=== PATIENT | male | born 1950 | race Caucasian/White ===

== ENCOUNTER 2018-09-04 17:53 | Emergency (ER) | payer MEDICARE, BC ==
[2018-09-04] MEDS ORDERED: LIDOCAINE 2% URO-JET 5 ML SYRINGE UR STA (20:19)
--- NOTE | 2018-09-04 20:26 | ED Physician Documentation ---
History of Present Illness - Stated complaint Stated Complaint: CATHETER ISSUES - Chief complaint Chief Complaint: General - History obtained from History obtained from: Patient, Family - History of Present Illness Timing: Today Pain level max: 0 Pain level now: 0 Improved by: nothing Worsened by: nothing - Additonal information Additional information: states cramer is not drianing today. Placed yesterday for urinary retention Review of Systems Constitutional: denies: Fever, Chills Respiratory: denies: Cough GI: denies: Vomiting, Diarrhea Skin: denies: Rash Musculoskeletal: denies: Neck pain Neurologic: denies: Headache PD PAST MEDICAL HISTORY - Past Medical History Past Medical History: Yes - Present Medications Home Medications: Ambulatory Orders Medication Instructions Recorded Confirmed Ciprofloxacin HCl [Cipro] 500 mg PO 09/04/18 Tamsulosin HCl [Flomax] 2 tab ORAL DAILY 09/04/18 09/04/18 - Allergies Allergies/Adverse Reactions: Allergies Allergy/AdvReac Type Severity Reaction Status Date / Time No Known Drug Allergies Allergy Verified 09/04/18 18:07 - Living Situation Living Situation: reports: With family Living Arrangement: reports: At home - Social History Does the pt have substance abuse?: No - Family History Family history: reports: Non contributory PD ED PE NORMAL - Vitals Vital signs reviewed: Yes - General General: Alert and oriented X 3, No acute distress - HEENT HEENT: Moist mucous membranes - Neck Neck: Supple, no meningeal sign - Cardiac Cardiac: RRR - Respiratory Respiratory: No respiratory distress, Clear bilaterally - Abdomen Abdomen: Soft, Non tender - Male Male : Other (cramer in place) - Derm Derm: Warm and dry - Neuro Neuro: Alert and oriented X 3 - Psych Psych: Normal mood, Normal affect Results - Vitals Vitals: Vital Signs - 24 hr 09/04/18 09/04/18 18:02 21:31 Temperature 36.3 C L Heart Rate 98 125 H Respiratory 16 20 Rate Blood Pressure 126/94 H 125/103 H O2 Saturation 99 100 Oxygen O2 Source Room air PD MEDICAL DECISION MAKING - ED course Complexity details: reviewed results, re-evaluated patient, considered differential, d/w patient ED course: Patient elected Cramer irrigation rather than replacement of the Cramer catheter. The catheter was irrigated and now flowing freely. He will follow-up with his urologist in the morning. Patient counseled regarding signs and symptoms for which I believe and urgent re-evaluation would be necessary. Patient with good understanding of and agreement to plan and is comfortable going home at this time This document was made in part using voice recognition software. While efforts are made to proofread this document, sound alike and grammatical errors may occur. Initially discussed replacement of the catheter with a larger catheter to prevent clotting from the hematuria Departure - Departure Disposition: 01 Home, Self Care Clinical Impression: Obstructed Cramer catheter Qualifiers: Encounter type: initial encounter Qualified Code(s): T83.091A - Other mechanical complication of indwelling urethral catheter, initial encounter Condition: Good Instructions: ED Catheter Care Cramer Follow-Up: Christine Patel MD [Primary Care Provider] - Within 1 week Comments: Return if you worsen. Follow up with your urologist as scheduled. Discharge Date/Time: 09/04/18 21:36
[2018-09-04 21:32] VITALS: BP 125/103
== END 2018-09-04 21:36 | disposition home or self-care (01) ==
LOC: ED 17:53
DX: T83.091A Other mechanical complication of indwelling urethral catheter, initial encounter (principal); R31.9 Hematuria, unspecified
CPT/HCPCS: 99283

== ENCOUNTER 2018-09-24 21:37 | Inpatient (IN) | payer MEDICARE, BC ==
[2018-09-24] MEDS ORDERED: LIDOCAINE 2% URO-JET 5 ML SYRINGE UR STA (21:48)
--- NOTE | 2018-09-24 21:51 | ED Physician Documentation ---
History of Present Illness - Stated complaint Stated Complaint: MALE - Chief complaint Chief Complaint: General - Additonal information Additional information: hx from pt and 68 male being txed for prostatitis by [facility] had an indwelling cramer for retention cramer was removed today he was able to urinate in the office but now not able to urinate for several hr very uncomfortable 2/2 full bladder no fever NV flank pain Review of Systems Constitutional: denies: Fever GI: denies: Nausea, Vomiting : reports: Unable to Void Musculoskeletal: denies: Back pain PD PAST MEDICAL HISTORY - Present Medications Home Medications: Ambulatory Orders Medication Instructions Recorded Confirmed Ciprofloxacin HCl [Cipro] 500 mg PO 09/04/18 Tamsulosin HCl [Flomax] 2 tab ORAL DAILY 09/04/18 09/04/18 - Allergies Allergies/Adverse Reactions: Allergies Allergy/AdvReac Type Severity Reaction Status Date / Time No Known Drug Allergies Allergy Verified 09/24/18 21:46 - Social History Does the pt smoke?: No Smoking Status: Never smoker Does the pt have substance abuse?: No PD ED PE NORMAL - Vitals Vital signs reviewed: Yes - Cardiac Cardiac: RRR - Respiratory Respiratory: No respiratory distress - Abdomen Abdomen: Soft, Other (palp bladder) - Male Male : Other (no blood at meatus, small clear urine leaking, no lesions) - Rectal Rectal: Other (enlarged prostate, no mass, no hemorrhoid or fissure, no stool in vault but gel/mucous is occult blood neg QC passed) - Derm Derm: Normal color - Neuro Neuro: Alert and oriented X 3 Results - Vitals Vitals: Vital Signs - 24 hr 09/24/18 09/24/18 21:44 22:49 Temperature 36.9 C 36.9 C Heart Rate 133 H 118 H Respiratory 18 18 Rate Blood Pressure 142/84 H 105/66 O2 Saturation 100 96 Oxygen O2 Source Room air - Labs Labs: Laboratory Tests 09/24/18 09/25/18 09/25/18 22:04 00:00 00:00 WBC 20.7 H RBC 3.03 L Hgb 7.7 L Hct 23.4 L MCV 77.0 L MCH 25.3 L MCHC 32.9 RDW 15.2 H Plt Count 604 H MPV 7.8 Neut # (Auto) 17.9 H Lymph # (Auto) 0.9 L Randolph # (Auto) 1.6 H Eos # (Auto) 0.2 Baso # (Auto) 0.1 Absolute Nucleated RBC 0.01 Nucleated RBC % 0.0 Sodium 126 L Potassium 4.2 Chloride 93 L Carbon Dioxide 23 Anion Gap 10.0 BUN 20 Creatinine 1.8 H Estimated GFR (MDRD) 38 L Glucose 134 H Lactic Acid Calcium 8.3 L Urine Color YELLOW Urine Clarity HAZY Urine pH 6.0 Ur Specific Echo <=1.005 Urine Protein 30 H Urine Glucose (UA) NEGATIVE Urine Ketones NEGATIVE Urine Occult Blood LARGE H Urine Nitrite NEGATIVE Urine Bilirubin NEGATIVE Urine Urobilinogen 0.2 (NORMAL) Ur Leukocyte Esterase MODERATE H Urine RBC 11-25 H Urine WBC >25 H Ur Squamous Epith Cells NONE SEEN Amorphous Sediment Few Urine Bacteria Few Ur Microscopic Review INDICATED Urine Culture Comments INDICATED 09/25/18 00:00 WBC RBC Hgb Hct MCV MCH MCHC RDW Plt Count MPV Neut # (Auto) Lymph # (Auto) Randolph # (Auto) Eos # (Auto) Baso # (Auto) Absolute Nucleated RBC Nucleated RBC % Sodium Potassium Chloride Carbon Dioxide Anion Gap BUN Creatinine Estimated GFR (MDRD) Glucose Lactic Acid < 0.3 L Calcium Urine Color Urine Clarity Urine pH Ur Specific Echo Urine Protein Urine Glucose (UA) Urine Ketones Urine Occult Blood Urine Nitrite Urine Bilirubin Urine Urobilinogen Ur Leukocyte Esterase Urine RBC Urine WBC Ur Squamous Epith Cells Amorphous Sediment Urine Bacteria Ur Microscopic Review Urine Culture Comments PD MEDICAL DECISION MAKING - ED course ED course: pt arrived tachy presumed 2/2 bladder discomfort but after cramer placed and discomfort resolved he still had tachycardia - improved, now 110, but still abnormal and then developed some rigors so got blood work, lactate, cultures, and gave 1 L NS, a dose of rocephin labs very abd - marked renal insuff, profound anemia, sig leukocytosis despite 6 weeks of cipro he denies bloody black BM and rectal exam no stool but occult blood neg pt did have labs with PMD a week ago - clinic in [facility] - but apparently not run through [facility] lab as no old results available - pt thinks maybe PMD and or urologist mentioned anemia and renal insuff but details not known as far as he knows no sig hx of either but given persistent tachycardia, WBC 20, Hgb 7.7, creat 1.8 and persistent tachycardia will admit called hospitalist who promptly came to the ER to admit Departure - Departure Disposition: 66 [facility] DC/Xfer Clinical Impression: Urinary retention, Renal insufficiency, Tachycardia UTI (urinary tract infection) Qualifiers: Urinary tract infection type: acute cystitis Hematuria presence: with hematuria Qualified Code(s): N30.01 - Acute cystitis with hematuria Anemia Qualifiers: Anemia type: unspecified type Qualified Code(s): D64.9 - Anemia, unspecified Leukocytosis Qualifiers: Leukocytosis type: unspecified Qualified Code(s): D72.829 - Elevated white blood cell count, unspecified Condition: Good Instructions: ED Catheter Care Cramer Follow-Up: Christine Patel MD [Primary Care Provider] - Comments: The urine sample showed blood (likely from catheter placement) and infection. For now continue the cipro A urine culture will be run to identify the bacteria that are causing the infection and what antibiotics will work for that strain of bacteria. The ER staff will keron you if a new antibiotic is needed Return if worse (fever kidney pain vomiting weakness)
[2018-09-24 22:20] LABS: BILIRUBIN,URINE NEGATIVE (NEGATIVE); GLUCOSE, URINE (UA) NEGATIVE (NEGATIVE); KETONES,URINE (UA) NEGATIVE (NEGATIVE); LEUKOCYTE ESTERASE, URINE MODERATE (NEGATIVE); NITRITE,URINE NEGATIVE (NEGATIVE); OCCULT BLOOD,URINE LARGE (NEGATIVE); PROTEIN,URINE 30 mg/dL (NEGATIVE); UROBILINOGEN,URINE 0.2 (NORMAL) E.U./dL (NORMAL)
[2018-09-24 22:22] LABS: CLARITY,URINE HAZY (CLEAR)
[2018-09-24 22:27] LABS: AMORPHOUS SEDIMENT,UR Few /LPF; BACTERIA,URINE Few /HPF (None Seen); SQUAMOUS EPITHELIAL CELL,UR NONE SEEN (<= Few)
[2018-09-24] MEDS ORDERED: cefTRIAXone 1 GM in SODIUM CHLORIDE 0.9% MINIBAG 100 ML IV STA (23:35)
[2018-09-24] MEDS ORDERED: SODIUM CHLORIDE 0.9% 1,000 ML IV ONE (23:35)
[2018-09-25 00:22] LABS: BASOPHILS # (AUTO) 0.1 10^3/uL (0.0-0.1); BASOPHILS % (AUTO) 0.4 %; EOSINOPHILS # (AUTO) 0.2 10^3/uL (0.0-0.7); EOSINOPHILS % (AUTO) 1.1 %; HGB - HEMOGLOBIN 7.7 g/dL (14.0-18.0); LYMPHOCYTES # (AUTO) 0.9 10^3/uL (1.5-3.5); LYMPHOCYTES % (AUTO) 4.2 %; MEAN CORPUSCULAR HEMOGLOBIN 25.3 pg (27.0-31.0); MEAN CORPUSCULAR HGB CONC 32.9 g/dL (32.0-36.0); MEAN PLATELET VOLUME 7.8 fL (7.4-11.4); MONOCYTES # (AUTO) 1.6 10^3/uL (0.0-1.0); MONOCYTES % (AUTO) 7.7 %; NEUTROPHILS # (AUTO) 17.9 10^3/uL (1.5-6.6); NEUTROPHILS % (AUTO) 86.6 %; PLT - PLATELET COUNT 604 10^3/uL (130-450); RED BLOOD COUNT 3.03 10^6/uL (4.70-6.10); RED CELL DISTRIBUTION WIDTH 15.2 % (12.0-15.0); WHITE BLOOD COUNT 20.7 x10^3/uL (4.8-10.8)
[2018-09-25 00:28] LABS: CALCIUM 8.3 mg/dL (8.5-10.3); CREATININE 1.8 mg/dL (0.6-1.2)
[2018-09-25] MEDS ORDERED: MORPHINE 2 MG/ML CARPUJECT IVP PRN (01:24)
[2018-09-25] MEDS ORDERED: ACETAMINOPHEN 325 MG TABLET PO PRN (01:24)
[2018-09-25] MEDS ORDERED: ZOLPIDEM 5 MG TABLET PO PRN (01:24)
--- NOTE | 2018-09-25 01:41 | HISTORY & PHYSICAL EXAMINATION ---
Meds/Allgy - Home Medications Home Medications: Ambulatory Orders Medication Instructions Recorded Confirmed Ciprofloxacin HCl [Cipro] 500 mg PO 09/04/18 Tamsulosin HCl [Flomax] 2 tab ORAL DAILY 09/04/18 09/04/18 - Allergies Allergies/Adverse Reactions: Allergies Allergy/AdvReac Type Severity Reaction Status Date / Time No Known Drug Allergies Allergy Verified 09/24/18 21:46 Exam - Vital Signs Vital Signs: Vital Signs x48h Temp Pulse Resp BP Pulse Ox 09/24/18 22:49 36.9 C 118 H 18 105/66 96 09/24/18 21:44 36.9 C 133 H 18 142/84 H 100 Conclusion/Plan - Problem List (1) Complicated UTI (urinary tract infection) Conclusion/Plan: Given that the patient has been diagnosed with prostatitis in the outpatient, and has failed antibiotic regimen first with doxycycline then with Cipro, now having tachycardia and SIRS response, diagnosis at this point is at least a complicated UTI possibly complication of prostatitis. His urine does strongly suggest of UTI and will be sent for culture. In the meantime, because of the guidelines for complicated UTI in the setting of urinary obstruction will use vancomycin and meropenem for antibiotic regimen pending cultures or significant clinical improvement. Carl catheter placed in the emergency room will remain in place and likely he will need to be discharged with this in place so that he can follow-up outpatient with urology. (2) SIRS (systemic inflammatory response syndrome) Conclusion/Plan: Most likely this is secondary to UTI. His lung exam is clear to me however the patient's notes that he has been coughing for about 1 month it is unlikely that he has an acute infectious bacterial pneumonia with a normal lung exam and normal oxygen sat durations, but given the other symptoms of infection I will go ahead and order a chest x-ray. (3) Microcytic anemia Conclusion/Plan: His labs do demonstrate a microcytic anemia, which is surprising given that he drank about 3 glasses of wine per day up until 1 month ago so I would have expected macrocytic anemia. It is unclear as to the etiology of this as his Hemoccult was negative and he does not have any history of signs or symptoms of bleeding. I will check a anemia panel in the morning and repeat labs but with further workup pending. (4) Thrombocythemia Conclusion/Plan: Platelets over 600,000, possibly due to hemoconcentration but this does not fit to the hemoglobin and hematocrits. We will repeat labs in the morning and he may need a possible outpatient workup for this. (5) Urinary retention Conclusion/Plan: Patient is unsure of the diagnosis as he has only recently been referred to urology but it sounds like he probably has BPH. I will continue his home dose of Flomax and his indwelling Carl catheter will remain in place. - Lab Results Lab results reviewed: Yes Fish Bones: 09/25/18 00:00 09/25/18 00:00 Core Measures - Anticipated LOS I expect patient to be DC'd or transferred within 96 hours.: Yes - DVT/VTE - Prophylaxis VTE/DVT Device ordered at admit?: Yes
[2018-09-25 01:44] LABS: MEAN RETIC VALUE 98.7; RED BLOOD COUNT 3.08 10^6/uL (4.70-6.10)
[2018-09-25] MEDS ORDERED: VANCOMYCIN PER PHARMACY 100 GM in SODIUM CHLORIDE 0.9% 250 ML IV SCH (02:00)
[2018-09-25 02:07] LABS: % IRON SATURATION 3 % (20-50); IRON 7 ug/dL (45-182); TOTAL IRON BINDING CAPACITY 224 ug/dL (250-450); TRANSFERRIN 160 mg/dL (180-329)
[2018-09-25] MEDS: SODIUM CHLORIDE 0.9% 1,000 ML IV SCH ×2 (02:40→14:09)
[2018-09-25] MEDS: VANCOMYCIN INJ 1 GM in SODIUM CHLORIDE 0.9% 250 ML IV SCH (04:17)
[2018-09-25] MEDS ORDERED: MEROPENEM 1 GM in SODIUM CHLORIDE 0.9% MINIBAG 100 ML IV SCH (06:00)
[2018-09-25] MEDS: MEROPENEM 1 GM in SODIUM CHLORIDE 0.9% MINIBAG 100 ML IV SCH ×2 (06:23→18:11)
[2018-09-25] MEDS: PANTOPRAZOLE 40 MG TABLET PO SCH (06:23)
[2018-09-25] MEDS ORDERED: TAMSULOSIN 0.4 MG CAPSULE PO SCH (09:00)
[2018-09-25] MEDS: POLYETHYLENE GLYCOL 3350 17 GM PACKET PO SCH (10:04)
[2018-09-25] MEDS: SODIUM CHLORIDE FLUSH 0.9% 10 ML SYRINGE IVP SCH ×2 (10:07→18:11)
--- NOTE | 2018-09-25 13:32 | XRAY Report ---
Reason: Cough x 1 month Procedure Date: 09/25/2018 Accession Number: [id number] / [id number] Procedure: XR - Chest 2 View X-Ray CPT Code: 61438 FULL RESULT: EXAM: CHEST RADIOGRAPHY EXAM DATE: 09/25/2018 10:27 AM. CLINICAL HISTORY: Cough x 1 month. COMPARISON: None. TECHNIQUE: 2 views. FINDINGS: Lungs/Pleura: No focal airspace consolidation evident. There is mild horizontal linear subsegmental atelectasis or scarring at the anterior aspect of the right lung base. No pleural effusion. No pneumothorax. Normal volumes. Mediastinum: Heart and mediastinal contours are unremarkable. Other: No acute osseous abnormality. There are mild degenerative disk changes of the thoracic spine. IMPRESSION: No acute cardiopulmonary abnormality. RADIA
[2018-09-25] MEDS ORDERED: SODIUM CHLORIDE 0.9% 1,000 ML IV ONE (14:09)
[2018-09-25] MEDS: TAMSULOSIN 0.4 MG CAPSULE PO SCH (18:11)
[2018-09-25] MEDS: SODIUM CHLORIDE FLUSH 0.9% 10 ML SYRINGE IVP PRN (19:00)
[2018-09-26] MEDS: SODIUM CHLORIDE FLUSH 0.9% 10 ML SYRINGE IVP SCH ×3 (00:23→17:47)
[2018-09-26] MEDS: HYDROcod/ACETAM 5/325 MG TABLET PO PRN ×2 (01:49→22:40)
[2018-09-26] MEDS: SODIUM CHLORIDE FLUSH 0.9% 10 ML SYRINGE IVP PRN (04:02)
[2018-09-26] MEDS: VANCOMYCIN INJ 1 GM in SODIUM CHLORIDE 0.9% 250 ML IV SCH (04:02)
[2018-09-26 05:39] LABS: HGB - HEMOGLOBIN 7.2 g/dL (14.0-18.0); MEAN CORPUSCULAR HEMOGLOBIN 25.5 pg (27.0-31.0); MEAN CORPUSCULAR HGB CONC 32.7 g/dL (32.0-36.0); MEAN CORPUSCULAR VOLUME 77.9 fL (80.0-94.0); MEAN PLATELET VOLUME 7.5 fL (7.4-11.4); RED BLOOD COUNT 2.83 10^6/uL (4.70-6.10); RED CELL DISTRIBUTION WIDTH 15.1 % (12.0-15.0); WHITE BLOOD COUNT 13.4 x10^3/uL (4.8-10.8)
[2018-09-26 05:46] LABS: CALCIUM 8.5 mg/dL (8.5-10.3); CREATININE 1.5 mg/dL (0.6-1.2)
[2018-09-26] MEDS: MEROPENEM 1 GM in SODIUM CHLORIDE 0.9% MINIBAG 100 ML IV SCH ×2 (06:20→19:41)
[2018-09-26] MEDS: PANTOPRAZOLE 40 MG TABLET PO SCH (06:22)
[2018-09-26] MEDS: TAMSULOSIN 0.4 MG CAPSULE PO SCH ×2 (08:51→17:47)
[2018-09-26] MEDS: FERROUS SULFATE 325 MG TABLET PO SCH ×2 (08:51→17:47)
[2018-09-26] MEDS: POLYETHYLENE GLYCOL 3350 17 GM PACKET PO SCH (08:52)
--- NOTE | 2018-09-26 12:06 | PROVIDER PROGRESS NOTE ---
Subjective - Prog Note Date Prog Note Date: 09/26/18 Prog Note Time: 12:02 - Subjective Pt reports feeling: Improved Subjective: Tobias complains of intermittent urinary urgency with bladder spasms today despite a cramer reposition. He denies chest pain, chest palpitations, a rash, or a productive cough. Current Medications - Current Medications Current Medications: Active Medications: Acetaminophen (Tylenol) 650 mg PO Q4HR PRN Hydrocodone Bitart/Acetaminophen ([place] 5/325) 1 tab PO Q4HR PRN Belladonna Alkaloids/Opium (B & O Supp) 1 supp GA Q6HR PRN Ferrous Sulfate (Feosol) 325 mg PO BIDWM CRYSTAL Meropenem 1 gm/ Sodium (Chloride) 100 mls @ 200 mls/hr IV Q12H CRYSTAL Vancomycin HCl 1 gm/ Sodium (Chloride) 250 mls @ 167 mls/hr IV Q24H CRYSTAL Sodium Chloride (Normal Saline 0.9%) 1,000 mls @ 0 mls/hr IV .Q0M CRYSTAL Morphine Sulfate (Morphine (Carpuject)) 2 mg IVP Q2HR PRN Pantoprazole Sodium (Protonix) 40 mg PO QDAC CRYSTAL Polyethylene Glycol (Miralax) 17 gm PO DAILY CRYSTAL Sodium Chloride (Normal Saline Flush 0.9%) 10 ml IVP PRN PRN Sodium Chloride (Normal Saline Flush 0.9%) 10 ml IVP 0100,0900,1700 CRYSTAL Tamsulosin HCl (Flomax) 0.4 mg PO BIDWM CRYSTAL Zolpidem Tartrate (Ambien) 5 mg PO QPM PRN HOME meds: Tamsulosin HCl [Flomax] 0.8 mg ORAL DAILY 09/04/18 Ascorbic Acid [Vitamin C] 1,000 mg PO DAILY 09/25/18 Objective - Vital Signs/Intake & Output Reviewed Vital Signs: Yes Vital Signs: Vital Signs x48h Temp Pulse Resp BP Pulse Ox 09/26/18 07:42 36.6 C 87 16 114/69 99 Intake & Output: Intake & Output 09/23/18 09/24/18 09/25/18 09/26/18 23:59 23:59 23:59 23:59 Intake Total 5547 590 Output Total 3350 900 Balance 2197 -310 - Objective General Appearance: positive: Alert, Mild distress Eyes Bilateral: positive: PERRL Eyes: OU Conjunctivae pale ENT: positive: Pharynx nml, No signs of dehydration Neck: positive: Thyroid nml, No JVD, Trachea midline Respiratory: positive: Chest non-tender, No respiratory distress, Other (crackles in bilateral bases.) Cardiovascular: positive: Regular rate & rhythm, No gallop, Tachycardia, Systolic murmur, Decreased pulse(s) Peripheral Pulses: 1+ Radial (R), 1+ Radial (L) Abdomen: positive: Non-tender, Nml bowel sounds Back: positive: Nml inspection Skin: positive: Color nml, No rash, Warm, Dry Extremities: positive: Non-tender, Full ROM, Nml appearance Neurologic/Psychiatric: positive: Oriented x3, CN's nml (2-12), Motor nml, Sensation nml, Mood/affect nml Reflexes: Bicep (R): 3+, Bicep (L): 3+ - Lab Results Fish Bones: 09/26/18 05:14 09/26/18 05:14 Other Labs: Lab Results x24hrs 09/26/18 09/26/18 Range/Units 05:14 05:14 WBC 13.4 H (4.8-10.8) x10^3/uL RBC 2.83 L (4.70-6.10) 10^6/uL Hgb 7.2 L (14.0-18.0) g/dL Hct 22.1 L (42.0-52.0) % MCV 77.9 L (80.0-94.0) fL MCH 25.5 L (27.0-31.0) pg MCHC 32.7 (32.0-36.0) g/dL RDW 15.1 H (12.0-15.0) % Plt Count 549 H (130-450) 10^3/uL MPV 7.5 (7.4-11.4) fL Sodium 137 (135-145) mmol/L Potassium 4.1 (3.5-5.0) mmol/L Chloride 105 (101-111) mmol/L Carbon Dioxide 23 (21-32) mmol/L Anion Gap 9.0 (6-13) BUN 17 (6-20) mg/dL Creatinine 1.5 H (0.6-1.2) mg/dL Estimated GFR (MDRD) 47 L (>89) Glucose 111 H (70-100) mg/dL Calcium 8.5 (8.5-10.3) mg/dL ABX Reporting Has patient been on IV antibiotics over the past 48 hours?: Yes Sepsis Event Note (H) - Evaluation Current Stage of Sepsis: Ruled out Assessment/Plan - Problem List (1) Complicated UTI (urinary tract infection) Impression: The patient had been on oral antibiotics outpatient and after arriving to the ED he was found to have a urine sample that showed an ongoing acute UTI. He denies new back or flank pain and on exam today is noted to have faint signs of pink tinged urine. He continues on treatment of meropenum and vanco IV and is generally improved. Preliminary cultures results show no aerobic pathogens with the final still pending. Plan: Continue IV treatment and ensure good flow from cramer. Continue indwelling cramer. (2) Microcytic anemia Impression: The patient had an admission H/H of 7.7/23.4 and today this has worsened at 7.2/22.1. Additionally, he is symptomatic while ambulating in which he became breathless, experienced leg weakness, and has been tachycardic with heart rates sustained in the 130-160's. On exam the patient is pale, denies chest pain, but continues to have bladder issues. Iron studies show an iron deficiency and he continues on BID oral iron supplement. He has no yazidism restrictions and agreeable to one unit of PRBCs. A possible cause of his anemia is chronic antibiotic treatment. Plan: Transfuse 1 unit of PRBCs, daily labs, monitor for bleeding. (3) BPH (benign prostatic hyperplasia) Impression: The patient states that he has been referred to Urology who attempted a voiding trial that failed and consequently led to him coming to the ED for an inability to urinate. Plan: Continue Flomax BID, continue indwelling cramer. (4) Urinary retention Impression: The patient continues to complain today of sharp cramping pains in his bladder and states that he has a full feeling at times. Per chart review, he had a similar episode overnight in which the cramer was adjusted to accommodate this discomfort. I have ordered a bladder US that is pending. He has tried a Opium/belladona suppository with good relief today, so this is ordered PRN. Plan: Continue B & O suppository to relax pelvic muscles and to ease bladder drainage, monitor urine out put, continue indwelling cramer, BID Flomax. (5) Tachycardia Impression: This morning, the patient ambulated in the hallway and since that time has sustained with a heart rate of 130-160. On exam the patient described a contributing factor of his indwelling cramer as this is causing him discomfort, cramping and a full feeling in his bladder. After reviewing today's labs, he is also noted to be more anemic, as another contributing factor. Plan: Await echo results, treat underlying causes, give B & O suppository for bladder discomfort, give one unit of PRBC for his worsening anemia, continue telemetry.
[2018-09-26] MEDS: OPIUM/BELLADONNA 60/16.2MG SUPPOSITORY PR PRN ×2 (12:17→18:09)
[2018-09-26] MEDS ORDERED: SODIUM CHLORIDE 0.9% 500 ML IV ONE (12:22)
[2018-09-26] MEDS ORDERED: FERROUS GLUCONATE 324 MG TABLET PO SCH (13:00)
[2018-09-26] MEDS ORDERED: diphenhydrAMINE 25 MG CAPSULE PO ONE (15:10)
[2018-09-26] MEDS ORDERED: ACETAMINOPHEN 325 MG TABLET PO SCH (15:15)
[2018-09-26] MEDS ORDERED: SODIUM CHLORIDE 0.9% 1,000 ML IV SCH (16:00)
--- NOTE | 2018-09-27 01:27 | Ultrasound Report ---
Reason: evaluate for cramer placement/bladder distention Procedure Date: 09/27/2018 Accession Number: [id number] / [id number] Procedure: US - Bladder CPT Code: FULL RESULT: EXAM: PELVIS ULTRASOUND, LIMITED EXAM DATE: 09/27/2018 12:08 AM. CLINICAL HISTORY: Evaluate for Cramer placement/bladder distention. COMPARISON: None. TECHNIQUE: Real-time scanning was performed with static images obtained. FINDINGS: There is an 8.5 x 7.9 x 8.5 cm solid, hypervascular mass which is either filling or compressing the urinary bladder. Cramer balloon catheter is seen along the right lateral margins of the mass. The urinary bladder itself otherwise is poorly visualized and is likely decompressed. IMPRESSION: 1. There is an 8.5 cm mass either compressing or filling the urinary bladder and displacing the Cramer balloon catheter rightward. This most likely represents a markedly enlarged prostate gland, however, urological consultation recommended to exclude primary bladder pathology. RADIA
[2018-09-27] MEDS: SODIUM CHLORIDE FLUSH 0.9% 10 ML SYRINGE IVP SCH ×2 (01:31→10:15)
[2018-09-27] MEDS: VANCOMYCIN INJ 1 GM in SODIUM CHLORIDE 0.9% 250 ML IV SCH (03:55)
[2018-09-27 05:42] LABS: HGB - HEMOGLOBIN 8.2 g/dL (14.0-18.0); MEAN CORPUSCULAR HEMOGLOBIN 25.2 pg (27.0-31.0); MEAN CORPUSCULAR HGB CONC 32.2 g/dL (32.0-36.0); MEAN CORPUSCULAR VOLUME 78.3 fL (80.0-94.0); MEAN PLATELET VOLUME 7.6 fL (7.4-11.4); RED BLOOD COUNT 3.26 10^6/uL (4.70-6.10); RED CELL DISTRIBUTION WIDTH 15.1 % (12.0-15.0); WHITE BLOOD COUNT 16.7 x10^3/uL (4.8-10.8)
[2018-09-27 05:44] LABS: CALCIUM 8.3 mg/dL (8.5-10.3); CREATININE 1.6 mg/dL (0.6-1.2)
[2018-09-27] MEDS: MEROPENEM 1 GM in SODIUM CHLORIDE 0.9% MINIBAG 100 ML IV SCH (06:07)
[2018-09-27] MEDS: PANTOPRAZOLE 40 MG TABLET PO SCH (06:10)
[2018-09-27] MEDS: FERROUS SULFATE 325 MG TABLET PO SCH (08:15)
[2018-09-27] MEDS: TAMSULOSIN 0.4 MG CAPSULE PO SCH (08:15)
[2018-09-27] MEDS: POLYETHYLENE GLYCOL 3350 17 GM PACKET PO SCH (08:15)
[2018-09-27] MEDS ORDERED: SENNA 8.6 MG TABLET PO SCH (09:00)
[2018-09-27] MEDS ORDERED: IOVERSOL 320 50 ML VIAL ONE (09:27)
[2018-09-27] MEDS ORDERED: IOVERSOL 320 100 ML VIAL IVP ONE ×2 (09:27→13:30)
[2018-09-27] MEDS: OPIUM/BELLADONNA 60/16.2MG SUPPOSITORY PR PRN (10:15)
--- NOTE | 2018-09-27 12:38 | CT Report ---
Reason: pelvic mass Procedure Date: 09/27/2018 Accession Number: [id number] / [id number] Procedure: CT - Abdomen/Pelvis W/ CPT Code: FULL RESULT: EXAM: CT ABDOMEN AND PELVIS EXAM DATE: 09/27/2018 12:01 PM. CLINICAL HISTORY: Pelvic mass. COMPARISONS: Bladder 09/27/2018 12:08 AM. TECHNIQUE: Routine helical CT imaging was performed through the abdomen and pelvis. IV contrast: OPTI 320 80 mL. Enteric contrast: Yes. Reconstructions: Coronal and sagittal. In accordance with CT protocol optimization, one or more of the following dose reduction techniques were utilized for this exam: automated exposure control, adjustment of mA and/or KV based on patient size, or use of iterative reconstructive technique. FINDINGS: Lung Bases: Marked pericardial calcifications. Liver: Normal. No masses. Gallbladder/Bile Ducts: Unremarkable. Spleen: Normal. Pancreas: Normal. Adrenal Glands: Normal. Kidneys: There is at least moderate left hydroureteronephrosis with perinephric fat stranding and suggestion of mild cortical loss of thickness. Right kidney demonstrates a cyst. Peritoneal Cavity/Bowel: No free fluid, bowel obstruction or overt lymphadenopathy. Pelvic Organs: The bladder contains a Carl catheter and is otherwise filled with a hypodense mass with suggestion of enhancing components. The mass measures at least 7.9 x 9.3 x 7.6 cm. It is unclear whether this mass arises from within the bladder or from a nearby structures such as the prostate. Suggestion of internal flow by color Doppler as well as suggestion of enhancement pattern favor soft tissue mass over hematoma. Vasculature: No aneurysms or other significant abnormality. Bones: No significant abnormality. Other: None. IMPRESSION: Obstruction of the left kidney with suggestion of some cortical loss indicating that the finding may be subacute or chronic. Redemonstration of likely soft tissue mass initially demonstrated by ultrasound. RADIA
[2018-09-27] MEDS ORDERED: DEXAMETHASONE 10 MG/ML VIAL IVP ONE (12:39)
[2018-09-27] MEDS ORDERED: diphenhydrAMINE INJ 50 MG/ML VIAL IVP ONE (12:39)
[2018-09-27] MEDS ORDERED: SODIUM CHLORIDE 0.9% 500 ML IV ONE (12:40)
[2018-09-27] MEDS: SODIUM CHLORIDE FLUSH 0.9% 10 ML SYRINGE IVP PRN ×2 (12:50→12:57)
[2018-09-27] MEDS ORDERED: DEXAMETHASONE 10 MG/ML VIAL IVP SCH (13:00)
[2018-09-27] MEDS ORDERED: IOVERSOL 320 50 ML VIAL PO ONE (13:30)
--- NOTE | 2018-09-27 14:06 | Discharge Plan ---
Discharge Plan Disposition: Home, Self Care Condition: Good Prescriptions: HYDROcod/ACETAM 5/325 [[place] 5/325] 1 tab PO Q4HR PRN #25 tablet PRN Reason: Pain 5 to 7 Opium/Belladonn 60/16.2MG Supp [B & O Supp] 1 supp KS Q6HR PRN #12 supp PRN Reason: Bladder Spasms Ciprofloxacin HCl [Cipro] 500 mg PO Q12H #56 tablet Ferrous Gluconate 324 mg PO BIDWM #60 tablet Polyethylene Glycol 3350 [Miralax] 17 gm PO DAILY #30 packet Saccharomyces Boulardii [Florastor] 250 mg PO BID #60 capsule Senna [Senokot] 8.6 mg PO DAILY #30 tablet Diet: Regular Activity Restrictions: Activity as Tolerated Shower Restrictions: No Instruction Topics: ED Catheter Care Cramer Additional Instructions or Follow Up instructions: You were admitted for a worsening bladder infection and urinary retention which required a cramer catheter to be placed until you see Urology. You were given IV antibiotics that you should continue with in a pill form until after your Urology appointment. To prevent the good bacteria from being depleted, please take a probiotic for the next month. Since you continued to have bladder spasms, fullness and sharp pains you were given a suppository to relax your pelvic floor muscles called opium/belladonna. More of these have been prescribed for home use. In addition, pain pills also were beneficial, so a short course of these have been continued. To prevent constipation, please take Senna and daily Mirralax. Prune juice warmed slightly also works well. You underwent a bladder ultrasound that showed a grapefruit sized mass that was concerning for possibly a blood clot or a mass, but this test was not enough to give us the full picture, so an abdominal/pelvic CT with contrast was ordered. Soon after you returned from this test, you had welts forming on your skin indicating a moderate allergic reaction to contrast dye called Ioversol containing Iodine. This has been added to your med allergy list. I spoke with the reading radiologist about the results of the CT and this mass appears to be within the bladder and not thought to be the result of a hematoma (an internal bruise). Your blood levels were low enough that it caused you to become short of breath with activity and your heart rate remained too fast. You were given 1 unit of blood with good results. I have provided you with a hard copy disk that you should take to your upcoming urology appointment. Please see your PCP within one week and your urology as scheduled. Both your PCP and the Urology clinic will get a copy of this discharge summary. No Smoking: If you smoke, Please STOP! Call for help. Follow-up with: Christine Patel MD [Primary Care Provider] -
--- NOTE | 2018-09-27 14:27 | DISCHARGE SUMMARY ---
"Discharge Summary Admit Date: 09/25/18 Discharge Date: 09/27/18 Discharging Provider: GRISEL Vickers Primary Care Provider: Christine Patel Code Status: Attempt Resuscitation Condition at Discharge: Good Discharge Disposition: 01 Home, Self Care - DIAGNOSES Admission Diagnoses: Complicated UTI (urinary tract infection) (N39.0) Urinary retention (R33.9) GISELLE (acute kidney injury) (N17.9) Microcytic anemia (D50.9) Thrombocytosis (D47.3) SIRS due to infectious process with acute organ dysfunction (A41.9) Discharge Diagnoses with Status of Each Condition: Urinary tract infection, site not specified (N39.0) ongoing, oral antibiotics to continue for the next 28 days given his chronic indwelling cramer. Final urine cultures did not identify any pathogens. Retention of urine, unspecified (R33.9) chronic, ongoing, indwelling cramer to remain. Benign prostatic hyperplasia without lower urinry tract symp (N40.0) chronic, continue BID Flomax. Other specified disorders of bladder (N32.89) B & O suppository for home use, new grapefruit sized mass within the bladder as per CT scan. Iron deficiency anemia, unspecified (D50.9) chronic, continue iron supplement. Tachycardia, unspecified (R00.0) improved. Thrombocytopenia, unspecified (D69.6) ongoing, stable. Constipation, unspecified (K59.00) bowel meds sent to the pharmacy, likely caused by narcotics used to treat bladder discomfort. - HPI History of Present Illness: Tobias Zaman is a 68-year-old male with a past medical history of BPH, a recent dry cough, thrombocytopenia, and chronic anemia. He presented to the ED with complaints of urinary retention while undergoing a voiding trial from his Urologist. He previously had an indwelling cramer placed for urinary retention after failing Flomax. He was admitted for inpatient care after an indwelling cramer was replaced, also given his persistent tachycardia, WBC 20, Hgb 7.7, creat 1.8 and complicated UTI with SIRS. He was first treated with Rocephin in the ED, a new urine sample was obtained and he will be given IV fluids due to tachycardia, as well as workup for thrombocytosis and anemia. - CONSULTS | PROCEDURES Consultations: Urology- medicine via phone with Dr. Youssef. - HOSPITAL COURSE Hospital Course: The patient was given Meropenum and IV vanco as he appeared to need more aggressive care due to his elevated WBC count and ongoing tachycardia. A new urine sample was obtained and could not identify any pathogens, so the patient was continued on Cipro to be taken for the next 28 days. He was symptomatic with a hemoglobin down to 7.2 and was given one unit of blood which allowed the hemoglobin to increase to 8.2. He had no apparent signs of acute bleeding. I spoke with his primary Urologist Dr. Migdalia Youssef who recommended a CT scan. Shortly after the CT scan, the patient was found to have raised, fluid filled, non-puritic, welts on his torso, neck and head. He did not have any change in his breathing and these welts quickly resolved after IV benadryl, IV dexamethasone and a 500 ml NS bolus were given. The patient was informed of the CT showing a mass within the bladder which needs prompt follow up with urology. A CD was given to the patient for his upcoming urology appointment on 10/01/2018. His indwelling cramer was left in place and was draining well with mucous flecks, but no gross hematuria. The patient was medically stable and discharged home with after teaching in the use of leg bags was completed. - ALLERGIES Allergies/Adverse Reactions: Allergies Allergy/AdvReac Type Severity Reaction Status Date / Time ioversol [From Optiray 160] Allergy Hives Verified 09/27/18 13:51 - MEDICATIONS Home Medications: Ambulatory Orders Medication Instructions Recorded Confirmed Tamsulosin HCl [Flomax] 0.8 mg ORAL DAILY 09/04/18 09/25/18 Ascorbic Acid [Vitamin C] 1,000 mg PO DAILY 09/25/18 09/25/18 Ciprofloxacin HCl [Cipro] 500 mg PO Q12H #56 tablet 09/27/18 Ferrous Gluconate 324 mg PO BIDWM #60 tablet 09/27/18 HYDROcod/ACETAM 5/325 [[place] 5/325] 1 tab PO Q4HR PRN #25 tablet 09/27/18 Opium/Belladonn 60/16.2MG Supp [B 1 supp MD Q6HR PRN #12 supp 09/27/18 & O Supp] Polyethylene Glycol 3350 [Miralax] 17 gm PO DAILY #30 packet 09/27/18 Saccharomyces Boulardii [Florastor] 250 mg PO BID #60 capsule 09/27/18 Senna [Senokot] 8.6 mg PO DAILY #30 tablet 09/27/18 - PHYSICAL EXAM AT DISCHARGE General Appearance: positive: No acute distress, Alert Eyes Bilateral: positive: Normal inspection, PERRL ENT: positive: Pharynx nml, No signs of dehydration Neck: positive: Thyroid nml, No JVD, Trachea midline Respiratory: positive: Chest non-tender, No respiratory distress, Breath sounds nml Cardiovascular: positive: Regular rate & rhythm, No gallop, Systolic murmur Peripheral Pulses: positive: 2+ Abdomen: positive: Non-tender, Nml bowel sounds, Guarding Back: positive: Nml inspection Skin: positive: No rash, Warm, Dry Extremities: positive: Non-tender, Full ROM, Nml appearance, No pedal edema Neurologic/Psychiatric: positive: Oriented x3, CN's nml (2-12), Motor nml, Sensation nml, Mood/affect nml Reflexes: Bicep (R): 3+, Bicep (L): 3+ - LABS Result Diagrams: 09/27/18 05:22 09/27/18 05:22 - DIAGNOSTIC IMAGING Diagnostic Imaging Results: Final report reviewed Diagnostic Imaging Results Comments: EXAM: CHEST RADIOGRAPHY EXAM DATE: 09/25/2018 10:27 AM. IMPRESSION: No acute cardiopulmonary abnormality. EXAM: PELVIS ULTRASOUND, LIMITED EXAM DATE: 09/27/2018 12:08 AM FINDINGS: There is an 8.5 x 7.9 x 8.5 cm solid, hypervascular mass which is either filling or compressing the urinary bladder. Cramer balloon catheter is seen along the right lateral margins of the mass. The urinary bladder itself otherwise is poorly visualized and is likely decompressed. IMPRESSION: 1. There is an 8.5 cm mass either compressing or filling the urinary bladder and displacing the Cramer balloon catheter rightward. This most likely represents a markedly enlarged prostate gland, however, urological consultation recommended to exclude primary bladder pathology. EXAM: CT ABDOMEN AND PELVIS EXAM DATE: 09/27/2018 12:01 PM Findings: Pelvic Organs: The bladder contains a Cramer catheter and is otherwise filled with a hypodense mass with suggestion of enhancing components. The mass measures at least 7.9 x 9.3 x 7.6 cm. It is unclear whether this mass arises from within the bladder or from a nearby structures such as the prostate. Suggestion of internal flow by color Doppler as well as suggestion of enhancement pattern favor soft tissue mass over hematoma. IMPRESSION: Obstruction of the left kidney with suggestion of some cortical loss indicating that the finding may be subacute or chronic. Redemonstration of likely soft tissue mass initially demonstrated by ultrasound. - SEPSIS Current Stage of Sepsis: Ruled out - FOLLOW UP Follow Up: Prescriptions: HYDROcod/ACETAM 5/325 [[place] 5/325] 1 tab PO Q4HR PRN #25 tablet PRN Opium/Belladonn 60/16.2MG Supp [B & O Supp] 1 supp MD Q6HR PRN #12 supp PRN Reason: Bladder Spasms Ciprofloxacin HCl [Cipro] 500 mg PO Q12H #56 tablet Ferrous Gluconate 324 mg PO BIDWM #60 tablet Polyethylene Glycol 3350 [Miralax] 17 gm PO DAILY #30 packet Saccharomyces Boulardii [Florastor] 250 mg PO BID #60 capsule Senna [Senokot] 8.6 mg PO DAILY #30 tablet Additional Instructions or Follow Up instructions: You were admitted for a worsening bladder infection and urinary retention which required a cramer catheter to be placed until you see Urology. You were given IV antibiotics that you should continue with in a pill form until after your Urology appointment. To prevent the good bacteria from being depleted, please take a probiotic for the next month. Since you continued to have bladder spasms, fullness and sharp pains you were given a suppository to relax your pelvic floor muscles called opium/belladonna. More of these have been prescribed for home use. In addition, pain pills also were beneficial, so a short course of these have been continued. To prevent constipation, please take Senna and daily Mirralax. Prune juice warmed slightly also works well. You underwent a bladder ultrasound that showed a grapefruit sized mass that was concerning for possibly a blood clot or a mass, but this test was not enough to give us the full picture, so an abdominal/pelvic CT with contrast was ordered. Soon after you returned from this test, you had welts forming on your skin indicating a moderate allergic reaction to contrast dye called Ioversol containing Iodine. This has been added to your med allergy list. I spoke with the reading radiologist about the results of the CT and this mass appears to be within the bladder and not thought to be the result of a hematoma (an internal bruise). Your blood levels were low enough that it caused you to become short of breath with activity and your heart rate remained too fast. You were given 1 unit of blood with good results. I have provided you with a hard copy disk that you should take to your upcoming urology appointment. Please see your PCP within one week and your urology as scheduled. Both your PCP and the Urology clinic will get a copy of this discharge summary. - TIME SPENT Time Spent in Discharge (Minutes): 65"
[2018-09-27 14:39] VITALS: BP 131/83
[2018-09-27] MEDS ORDERED: CIPROFLOXACIN 250 MG TABLET PO SCH (21:00)
== END 2018-09-27 14:50 | disposition home or self-care (01) | DRG 699 ==
LOC: ED 21:37 → MS2 09-25 01:25
PROVIDERS: ADMIT Family Medicine Sports Medicine; ATTEND Nurse Practitioner
PROC: 30233N1 Transfusion of Nonautologous Red Blood Cells into Peripheral Vein, Percutaneous Approach (ICD-10-PCS; principal; 2018-09-26)
DX: T83.511A Infection and inflammatory reaction due to indwelling urethral catheter, initial encounter (principal); N28.9 Disorder of kidney and ureter, unspecified; R00.0 Tachycardia, unspecified; N30.01 Acute cystitis with hematuria; D64.9 Anemia, unspecified; N17.9 Acute kidney failure, unspecified; N41.0 Acute prostatitis; Y84.6 Urinary catheterization as the cause of abnormal reaction of the patient, or of later complication, without mention of misadventure at the time of the procedure; T83.83XA Hemorrhage due to genitourinary prosthetic devices, implants and grafts, initial encounter; N39.0 Urinary tract infection, site not specified; R31.9 Hematuria, unspecified; N41.1 Chronic prostatitis; D50.9 Iron deficiency anemia, unspecified; N32.89 Other specified disorders of bladder; K59.03 Drug induced constipation; T40.605A Adverse effect of unspecified narcotics, initial encounter; L50.0 Allergic urticaria; T50.8X5A Adverse effect of diagnostic agents, initial encounter; Y92.230 Patient room in hospital as the place of occurrence of the external cause; N40.1 Benign prostatic hyperplasia with lower urinary tract symptoms; R33.8 Other retention of urine; N13.9 Obstructive and reflux uropathy, unspecified; R05 Cough; D47.3 Essential (hemorrhagic) thrombocythemia; Z79.899 Other long term (current) drug therapy
CPT/HCPCS: 36415; 51702; 71046; 74177; 76857; 80048; 81001; 81003; 82607; 82728; 83540; 83605; 83735; 84466; 85025; 85027; 85044; 86850; 86900; 86901; 86920; 87040; 87086; 93005; 96361; 96365; 99283; 99284

== ENCOUNTER 2018-10-18 13:37 | Outpatient (CLI) | payer MEDICARE, BC ==
[2018-10-18] MEDS ORDERED: GADOBUTROL 10 MMOL/10 ML VIAL ONE (14:16)
[2018-10-18] MEDS ORDERED: GADOBUTROL 10 MMOL/10 ML VIAL IVP ONE ×2 (15:08→15:14)
--- NOTE | 2018-10-20 13:04 | MRI Report ---
Reason: BLADDER MASS Procedure Date: 10/18/2018 Accession Number: [id number] / [id number] Procedure: MRI - Pelvis W/WO CPT Code: FULL RESULT: EXAM: MR PELVIS WITH AND WITHOUT CONTRAST EXAM DATE: 10/18/2018 03:38 PM. CLINICAL HISTORY: Bladder mass. Pelvic pain. COMPARISON: Bladder 09/27/2018 12:08 AM Abdomen/pelvis w/contrast 09/27/2018 11:43 AM. TECHNIQUE: Multiplanar breath-hold T1 and T2-weighted sequences obtained through the pelvis on an MR scanner. Images obtained before and after administration of 8 mL of Gadavist intravenous contrast. FINDINGS: Bowel: Included portions of the small bowel and colon are unremarkable. Stool present in the visualized colon. No enlarged pelvic lymph nodes are identified. There is a fatty left internal hernia. Bladder: Carl catheter is present in the urinary bladder with the balloon present in the fundus of the urinary bladder. Within the urinary bladder is a T2 heterogeneous and T1 hypointense mass measuring approximately 10.2 x 10.3 x 8.2 cm. There is heterogeneous somewhat linear enhancement postcontrast. There is some indentation, retraction and irregularity of the left lateral urinary bladder with tethering of the left perivesicular soft tissues as well as the cephalad aspect of the left seminal vesicles extending to the left UVJ. There is perivesicular infiltration and thickening extending into the adjacent soft tissues. There is bilateral ureteral dilatation left greater than right. Reproductive Organs: Prostate gland is heterogeneous and measures in transverse extent 4.4 cm. Bony Structures: Degenerative changes at both hip joints. No osseous lesions are identified. There is subcutaneous edema. IMPRESSION: 1. Heterogeneous 10.3 cm bladder mass with tethering and abnormal contour of the left lateral urinary bladder wall with associated thickening and perivesicular infiltration on the left. 2. Bilateral hydronephrosis. 3. No pelvic adenopathy. 4. Carl catheter present within the urinary bladder with the balloon in the cephalad aspect of the bladder above the mass. RADIA
== END 2018-10-18 13:38 | disposition home or self-care (01) ==
LOC: DI 13:37
PROVIDERS: ATTEND Urology
DX: N32.9 Bladder disorder, unspecified (principal); N13.30 Unspecified hydronephrosis
CPT/HCPCS: 72197; A9585

== ENCOUNTER 2018-11-13 16:43 | Emergency (ER) | payer MEDICARE, BC ==
--- NOTE | 2018-11-13 17:34 | ED Physician Documentation ---
History of Present Illness - Stated complaint Stated Complaint: SENT BY DOC - Chief complaint Chief Complaint: General - History obtained from History obtained from: Patient, Family - History of Present Illness Timing: Yesterday (This is a 68-year-old gentleman with history of prostate and bladder issues. Has a known bladder mass which was biopsied at the [facility] a week ago to the day, he does not know the pathology yet. Based on recent pelvic MRI it is concerning for malignancy. He had blood work done, just interval blood work after an admission for a UTI. He was sent from the office with blood work from yesterday showing a white count of 26,000, hemoglobin of 7.7, platelet count of 865. He had a creatinine of 1.6. The hemoglobin is about the same as it was during his hospitalization last month. He does note feeling hot and cold and having some low-grade fevers at home. He feels weak and he knows his heart rate is high. He denies shortness of breath, abdominal pain, diarrhea. He has a catheter in place that is about 3 weeks old.) Review of Systems Ten Systems: 10 systems reviewed and negative Constitutional: reports: Fever, Chills, Fatigue Cardiac: denies: Chest pain / pressure, Palpitations Respiratory: reports: Cough. denies: Dyspnea GI: reports: Constipation. denies: Abdominal Pain, Nausea, Vomiting, Diarrhea, Bloody / black stool PD PAST MEDICAL HISTORY - Past Medical History Cardiovascular: None Respiratory: None Neuro: None Endocrine/Autoimmune: None GI: None : Benign prostate hypertrophy, Indwelling catheter HEENT: None Psych: None Musculoskeletal: None Derm: None - Past Surgical History General: Other - Present Medications Home Medications: Ambulatory Orders Medication Instructions Recorded Confirmed Tamsulosin HCl [Flomax] 0.8 mg ORAL DAILY 09/04/18 11/13/18 Ascorbic Acid [Vitamin C] 1,000 mg PO DAILY 09/25/18 09/25/18 Ferrous Gluconate 324 mg PO BIDWM #60 tablet 09/27/18 11/13/18 HYDROcod/ACETAM 5/325 [[place] 5/325] 1 tab PO Q4HR PRN #25 tablet 09/27/18 Saccharomyces Boulardii [Florastor] 250 mg PO BID #60 capsule 09/27/18 Senna [Senokot] 8.6 mg PO DAILY #30 tablet 09/27/18 11/13/18 - Allergies Allergies/Adverse Reactions: Allergies Allergy/AdvReac Type Severity Reaction Status Date / Time ioversol [From Optiray 160] Allergy Hives Verified 11/13/18 18:09 - Social History Does the pt smoke?: No Smoking Status: Never smoker Does the pt have substance abuse?: No PD ED PE NORMAL - Vitals Vital signs reviewed: Yes (Tachycardic) - General General: Alert and oriented X 3 (Pale) - HEENT HEENT: PERRL, EOMI - Neck Neck: Supple, no meningeal sign, No bony TTP - Cardiac Cardiac: No murmur (Tachycardic, regular, sinus tachycardia on the monitor) - Respiratory Respiratory: No respiratory distress, Clear bilaterally - Abdomen Abdomen: Soft, Non tender - Male Male : Other (Carl in place with dark urine in the bag, not obviously bloody) - Back Back: No CVA TTP, No spinal TTP - Derm Derm: No rash - Extremities Extremities: No edema, No calf tenderness / cord - Neuro Neuro: Alert and oriented X 3, Normal speech Results - Vitals Vitals: Vital Signs - 24 hr 11/13/18 11/13/18 11/13/18 16:54 17:07 17:59 Temperature 37.0 C 37.0 C 37.7 C H Heart Rate 130 H 128 H 129 H Respiratory 16 20 18 Rate Blood Pressure 115/76 113/78 114/85 H O2 Saturation 97 99 96 11/13/18 11/13/18 11/13/18 18:47 19:45 21:50 Temperature 37.8 C H Heart Rate 128 H 120 H 119 H Respiratory 19 20 16 Rate Blood Pressure 121/79 106/76 108/71 O2 Saturation 97 96 97 11/13/18 11/13/18 11/13/18 22:05 22:17 22:31 Temperature 37.8 C H 37.8 C H 37.4 C Heart Rate 119 H 115 H 110 H Respiratory 18 21 20 Rate Blood Pressure 108/69 101/71 101/73 O2 Saturation Oxygen O2 Source Room air - Labs Labs: Laboratory Tests 11/13/18 11/13/18 11/13/18 17:36 17:36 17:36 WBC 27.7 H RBC 3.35 L Hgb 7.6 L Hct 24.6 L MCV 73.4 L MCH 22.8 L MCHC 31.1 L RDW 18.2 H Plt Count 786 H MPV 7.3 L Neut # (Auto) 23.9 H Lymph # (Auto) 1.4 L Cecil # (Auto) 1.8 H Eos # (Auto) 0.2 Baso # (Auto) 0.3 H Absolute Nucleated RBC 0.02 Nucleated RBC % 0.1 Manual Slide Review Indicated WBC Morphology 1+ SMUDGE CELLS Platelet Estimate INCREASED (>450,000) Platelet Morphology NORMAL APPEARANCE RBC Morph Micro Appear 1+ SCHISTOCYTES PT 15.9 H INR 1.4 H Sodium 127 L Potassium 4.5 Chloride 93 L Carbon Dioxide 22 Anion Gap 12.0 BUN 18 Creatinine 1.9 H Estimated GFR (MDRD) 35 L Glucose 122 H Lactic Acid Calcium 9.1 Total Bilirubin 0.2 AST 51 H ALT 42 Alkaline Phosphatase 109 Total Protein 7.0 Albumin 2.9 L Globulin 4.1 Albumin/Globulin Ratio 0.7 L Lipase 36 Urine Color Urine Clarity Urine pH Ur Specific [place] Urine Protein Urine Glucose (UA) Urine Ketones Urine Occult Blood Urine Nitrite Urine Bilirubin Urine Urobilinogen Ur Leukocyte Esterase Urine RBC Urine WBC Ur Epithelial Cells Ur Squamous Epith Cells Urine Bacteria Urine Yeast Ur Microscopic Review Urine Culture Comments Influenza A (Rapid) Influenza B (Rapid) Blood Type Antibody Screen Crossmatch IS Only 11/13/18 11/13/18 11/13/18 17:36 17:47 17:47 WBC RBC Hgb Hct MCV MCH MCHC RDW Plt Count MPV Neut # (Auto) Lymph # (Auto) Cecil # (Auto) Eos # (Auto) Baso # (Auto) Absolute Nucleated RBC Nucleated RBC % Manual Slide Review WBC Morphology Platelet Estimate Platelet Morphology RBC Morph Micro Appear PT INR Sodium Potassium Chloride Carbon Dioxide Anion Gap BUN Creatinine Estimated GFR (MDRD) Glucose Lactic Acid 1.5 Calcium Total Bilirubin AST ALT Alkaline Phosphatase Total Protein Albumin Globulin Albumin/Globulin Ratio Lipase Urine Color Urine Clarity Urine pH Ur Specific [place] Urine Protein Urine Glucose (UA) Urine Ketones Urine Occult Blood Urine Nitrite Urine Bilirubin Urine Urobilinogen Ur Leukocyte Esterase Urine RBC Urine WBC Ur Epithelial Cells Ur Squamous Epith Cells Urine Bacteria Urine Yeast Ur Microscopic Review Urine Culture Comments Influenza A (Rapid) Influenza B (Rapid) Blood Type A POSITIVE Cancelled Antibody Screen NEGATIVE Cancelled Crossmatch IS Only See Detail 11/13/18 11/13/18 18:00 18:01 WBC RBC Hgb Hct MCV MCH MCHC RDW Plt Count MPV Neut # (Auto) Lymph # (Auto) Cecil # (Auto) Eos # (Auto) Baso # (Auto) Absolute Nucleated RBC Nucleated RBC % Manual Slide Review WBC Morphology Platelet Estimate Platelet Morphology RBC Morph Micro Appear PT INR Sodium Potassium Chloride Carbon Dioxide Anion Gap BUN Creatinine Estimated GFR (MDRD) Glucose Lactic Acid Calcium Total Bilirubin AST ALT Alkaline Phosphatase Total Protein Albumin Globulin Albumin/Globulin Ratio Lipase Urine Color YELLOW Urine Clarity HAZY Urine pH 6.0 Ur Specific [place] 1.015 Urine Protein 100 H Urine Glucose (UA) NEGATIVE Urine Ketones NEGATIVE Urine Occult Blood MODERATE H Urine Nitrite NEGATIVE Urine Bilirubin NEGATIVE Urine Urobilinogen 0.2 (NORMAL) Ur Leukocyte Esterase LARGE H Urine RBC 6-10 H Urine WBC >25 H Ur Epithelial Cells FEW Transitional Ur Squamous Epith Cells NONE SEEN Urine Bacteria Rare Urine Yeast PRESENT Ur Microscopic Review INDICATED Urine Culture Comments INDICATED Influenza A (Rapid) Negative Influenza B (Rapid) Negative Blood Type Antibody Screen Crossmatch IS Only - Rads (name of study) CT KUB Radiology: EMP read contemporaneously (Bladder mass versus clot, old left hydronephrosis and new right hydronephrosis. Severe coronary disease, question of constrictive pericarditis.) PD MEDICAL DECISION MAKING - ED course ED course: This is a 68-year-old gentleman with known large bladder mass recently biopsied who presents with tachycardia, elevated white blood cell count and low-grade fever. This is all concerning for sepsis, potentially from a urologic source especially knowing that he has a history of ureteral blockage from the mass on the left side. Prior cultures reviewed, recent UTI without growth, he was administered levofloxacin. His hemoglobin really has not changed but probably deserves 1 unit of transfusion given the increased metabolic demands in the midst of sepsis. Call to [facility] for consultation at 6:30 PM given urologic obstruction. I spoke with his urologist, Dr. Barakat at 6:40 PM who would like a noncontrast CT to make sure he is not bleeding into the bladder tumor after the biopsy. After that I will call her back, likely transfer based on the complexity of the case. I called her back after the results of the CT and she agreed with transfer and now transfusion in the setting of known coronary disease on the CT. She defers to the [facility] transfer center for the actual transfer process but agrees with the management of the case so far. Unfortunately [facility] was full at this juncture. I did speak with the on-call urologist but due to a lack of bed they cannot accept at this juncture but will call back in the morning. Patient did not want to be transferred anywhere but the [facility] given that is where his care has been. I spoke with Dr. Ryder for potential admission here at [address] Ryder saw the pt and felt the pt needed a higher level of care and potentially ICU, which was full here. Spoke with pt, offered another urologic capable facility but he wanted to board in the ED pending hopeful bed available at [facility]. Updated by phone. Departure - Departure Disposition: 02 Transfer Acute Care Hosp Clinical Impression: Complicated UTI (urinary tract infection), SIRS (systemic inflammatory response syndrome), Tachycardia, Thrombocythemia, Renal insufficiency Leukocytosis Qualifiers: Leukocytosis type: leukemoid reaction Qualified Code(s): D72.823 - Leukemoid reaction Bladder cancer Qualifiers: Bladder location: unspecified site Qualified Code(s): C67.9 - Malignant neoplasm of bladder, unspecified Hydronephrosis Qualifiers: Hydronephrosis type: unspecified Qualified Code(s): N13.30 - Unspecified hydronephrosis Condition: Serious
[2018-11-13 17:56] LABS: BASOPHILS # (AUTO) 0.3 10^3/uL (0.0-0.1); BASOPHILS % (AUTO) 1.1 %; EOSINOPHILS # (AUTO) 0.2 10^3/uL (0.0-0.7); EOSINOPHILS % (AUTO) 0.7 %; HGB - HEMOGLOBIN 7.6 g/dL (14.0-18.0); LYMPHOCYTES # (AUTO) 1.4 10^3/uL (1.5-3.5); LYMPHOCYTES % (AUTO) 5.2 %; MEAN CORPUSCULAR HEMOGLOBIN 22.8 pg (27.0-31.0); MEAN CORPUSCULAR HGB CONC 31.1 g/dL (32.0-36.0); MEAN CORPUSCULAR VOLUME 73.4 fL (80.0-94.0); MEAN PLATELET VOLUME 7.3 fL (7.4-11.4); MONOCYTES # (AUTO) 1.8 10^3/uL (0.0-1.0); MONOCYTES % (AUTO) 6.7 %; NEUTROPHILS # (AUTO) 23.9 10^3/uL (1.5-6.6); NEUTROPHILS % (AUTO) 86.3 %; PLT - PLATELET COUNT 786 10^3/uL (130-450); RED BLOOD COUNT 3.35 10^6/uL (4.70-6.10); RED CELL DISTRIBUTION WIDTH 18.2 % (12.0-15.0); WHITE BLOOD COUNT 27.7 x10^3/uL (4.8-10.8)
[2018-11-13 18:01] LABS: INR 1.4 (0.8-1.2); PT - PROTHROMBIN TIME 15.9 secs (9.9-12.6)
[2018-11-13 18:14] LABS: BILIRUBIN,URINE NEGATIVE (NEGATIVE); GLUCOSE, URINE (UA) NEGATIVE (NEGATIVE); KETONES,URINE (UA) NEGATIVE (NEGATIVE); LEUKOCYTE ESTERASE, URINE LARGE (NEGATIVE); NITRITE,URINE NEGATIVE (NEGATIVE); OCCULT BLOOD,URINE MODERATE (NEGATIVE); PROTEIN,URINE 100 mg/dL (NEGATIVE); UROBILINOGEN,URINE 0.2 (NORMAL) E.U./dL (NORMAL)
[2018-11-13 18:15] LABS: CLARITY,URINE HAZY (CLEAR)
[2018-11-13 18:20] LABS: ALBUMIN 2.9 g/dL (3.2-5.5); ALBUMIN/GLOBULIN RATIO 0.7 (1.0-2.2); BILIRUBIN,TOTAL 0.2 mg/dL (0.2-1.0); CALCIUM 9.1 mg/dL (8.5-10.3); CREATININE 1.9 mg/dL (0.6-1.2)
[2018-11-13 18:26] LABS: BACTERIA,URINE Rare /HPF (None Seen); EPITHELIAL CELLS,UR FEW Transitional /HPF (<= Few); SQUAMOUS EPITHELIAL CELL,UR NONE SEEN (<= Few); YEAST,URINE PRESENT
[2018-11-13] MEDS ORDERED: levoFLOXacin 500 MG/100 ML 500 MG/100 ML BAG IV ONE (18:30)
[2018-11-13 18:35] LABS: PLATELET ESTIMATE, MANUAL INCREASED (>450,000) (NORMAL); PLATELET MORPHOLOGY NORMAL APPEARANCE (NORMAL)
[2018-11-13] MEDS ORDERED: cefTRIAXone 1 GM in SODIUM CHLORIDE 0.9% MINIBAG 100 ML IV STA (18:36)
--- NOTE | 2018-11-13 18:50 | XRAY Report ---
Reason: fever, weak Procedure Date: 11/13/2018 Accession Number: [id number] / [id number] Procedure: XR - Chest 2 View X-Ray CPT Code: 17739 FULL RESULT: EXAM: CHEST RADIOGRAPHY EXAM DATE: 11/13/2018 06:37 PM. CLINICAL HISTORY: Fever, weak. COMPARISON: None. TECHNIQUE: 2 views. FINDINGS: Lungs/Pleura: No focal opacities evident. No pleural effusion. No pneumothorax. Normal volumes. Mediastinum: Heart and mediastinal contours are unremarkable. Other: Gaseous distention of the visualized colon in the upper abdomen. IMPRESSION: No focal consolidation. RADIA
[2018-11-13] MEDS ORDERED: OPIUM/BELLADONNA 60/16.2MG SUPPOSITORY PR STA (19:06)
--- NOTE | 2018-11-13 20:08 | CT Report ---
Reason: anemia r/o bladder tumor hematoma Procedure Date: 11/13/2018 Accession Number: [id number] / [id number] Procedure: CT - Abdomen/Pelvis WO CPT Code: FULL RESULT: EXAM: CT ABDOMEN AND PELVIS (CT KUB) EXAM DATE: 11/13/2018 07:21 PM. CLINICAL HISTORY: Anemia r/o bladder tumor hematoma. COMPARISONS: ABDOMEN/PELVIS W/ 09/27/2018 11:43 AM. TECHNIQUE: Routine helical CT imaging was performed through the abdomen and pelvis without intravenous contrast. Lack of intravenous contrast can at times limit scan sensitivity, particularly for the detection of intraparenchymal and vascular pathology. Reconstructions: Coronal and sagittal. In accordance with CT protocol optimization, one or more of the following dose reduction techniques were utilized for this exam: automated exposure control, adjustment of mA and/or KV based on patient size, or use of iterative reconstructive technique. FINDINGS: ABDOMEN: Lung Bases: Incompletely included lower lungs demonstrate dependent atelectasis. Heart size is within normal limits. 3 vessel coronary artery calcifications. Extensive pericardial calcifications. No basilar effusions. Liver: Unremarkable. Gallbladder/Bile Ducts: Gallbladder is unremarkable. Visualized biliary tree is normal caliber. Spleen: Unremarkable. Pancreas: Unremarkable. Adrenal Glands: Unremarkable. Kidneys: New moderate right-sided hydroureteronephrosis and redemonstration of left hydroureteronephrosis. No calculi. Peritoneum/Mesentery/Bowel: No free fluid, free air, or collection. No intestinal obstruction or inflammation. The appendix is within normal limits. Lymph nodes: No mesenteric, periportal, or retroperitoneal lymphadenopathy. PELVIS: Bladder is distended with a large amount of hyperdense material. Carl catheter is present within. Degree of distention is mildly increased from the prior, measuring up to 12.6 x 9.1 cm, previously 10.2 x 7.8 cm. Prostate is present. No pelvic lymphadenopathy. Moderate fat filled left inguinal hernia. Retroperitoneum: Abdominal aorta is nonaneurysmal. Bones: No suspicious osseous lesions. IMPRESSION: Increased distention of the bladder with hyperdense material consistent with hemorrhage and clot. Underlying mass cannot be excluded. There is new moderate right hydronephrosis and persistent left moderate hydroureteronephrosis. Persistent extensive pericardial calcifications. Correlate as to the presence of constrictive pericarditis. Severe three-vessel coronary artery calcifications. RADIA
[2018-11-13] MEDS ORDERED: SODIUM CHLORIDE 0.9% 1,000 ML IV ONE ×2 (20:18→23:09)
[2018-11-13] MEDS ORDERED: LORazepam 0.5 MG TABLET PO STA (23:37)
[2018-11-14] MEDS: OPIUM/BELLADONNA 60/16.2MG SUPPOSITORY PR PRN ×3 (00:42→08:00)
[2018-11-14 06:13] LABS: HGB - HEMOGLOBIN 8.1 g/dL (14.0-18.0); MEAN CORPUSCULAR HGB CONC 33.5 g/dL (32.0-36.0); MEAN CORPUSCULAR VOLUME 74.5 fL (80.0-94.0); MEAN PLATELET VOLUME 6.9 fL (7.4-11.4); RED BLOOD COUNT 3.26 10^6/uL (4.70-6.10); WHITE BLOOD COUNT 19.6 x10^3/uL (4.8-10.8)
[2018-11-14 06:21] LABS: CREATININE 1.7 mg/dL (0.6-1.2)
[2018-11-14] MEDS ORDERED: ACETAMINOPHEN 325 MG TABLET PO STA (06:40)
[2018-11-14] MEDS ORDERED: SODIUM CHLORIDE 0.9% 1,000 ML IV ONE (07:39)
[2018-11-14] MEDS ORDERED: HEPARIN 25000UNITS/500ML (D5W) 25,000 UNIT/500 ML BAG IV STA (09:12)
[2018-11-14] MEDS ORDERED: FUROSEMIDE 20 MG/2 ML VIAL IVP STA (09:13)
--- NOTE | 2018-11-14 09:29 | ED Physician Documentation ---
ED Addendum - Addendum Addendum: Discussed with Dr. Cosme at 0820, still awaiting a bed. Notified her that the patient is now febrile. She recommends checking a troponin. This was ordered. Troponin came back elevated 0.80. Started on heparin gtt. NSTEMI. likely demand ischemia from tachycardia and anemia. Will transfuse 2 units PRBC and give lasix. Called back at 0925 and update given. EKG - 0913 - 107, sinus tach, normal axis. normal CT. NSST changes lateral leads. No STEMI. 11/14/18 10:[address] Barakat, urology who recommends transfer for cardiology as no beds avail today at . No beds at [facility]. No beds at [facility]. 11/14/18 11:09 D/w Dr. Duque (cardiology at [facility] in [place]) and Dr. Viera (hospitalist) who graciously accept this patient in transfer. COBRA forms completed. Pt is stable at this time. Departure - Departure Disposition: 02 Transfer Acute Care Hosp Clinical Impression: Complicated UTI (urinary tract infection), SIRS (systemic inflammatory response syndrome), Tachycardia, Thrombocythemia, Renal insufficiency, NSTEMI (non-ST elevated myocardial infarction) Leukocytosis Qualifiers: Leukocytosis type: leukemoid reaction Qualified Code(s): D72.823 - Leukemoid reaction Bladder cancer Qualifiers: Bladder location: unspecified site Qualified Code(s): C67.9 - Malignant neoplasm of bladder, unspecified Hydronephrosis Qualifiers: Hydronephrosis type: unspecified Qualified Code(s): N13.30 - Unspecified hydronephrosis Condition: Serious
[2018-11-14] MEDS ORDERED: METOPROLOL 5 MG/5 ML VIAL IVP STA (10:08)
[2018-11-14] MEDS ORDERED: ASPIRIN CHEW 81 MG TABLET PO STA (10:51)
[2018-11-14 12:56] VITALS: BP 107/77
== END 2018-11-14 13:06 | disposition short-term general hospital (02) ==
LOC: ED 16:43
DX: N39.0 Urinary tract infection, site not specified (principal); R65.10 Systemic inflammatory response syndrome (SIRS) of non-infectious origin without acute organ dysfunction; R00.0 Tachycardia, unspecified; D47.3 Essential (hemorrhagic) thrombocythemia; N28.9 Disorder of kidney and ureter, unspecified; D72.823 Leukemoid reaction; C67.9 Malignant neoplasm of bladder, unspecified; N13.30 Unspecified hydronephrosis; N40.1 Benign prostatic hyperplasia with lower urinary tract symptoms; Z96.0 Presence of urogenital implants
CPT/HCPCS: 36415; 36430; 71046; 74176; 80048; 80053; 81001; 81003; 83605; 83690; 84484; 85025; 85027; 85610; 86850; 86900; 86901; 86920; 87040; 87086; 87275; 87276; 93005; 96361; 96365; 96366; 96367; 96375; 96376; 99285

== ENCOUNTER 2019-03-20 13:06 | Outpatient (CLI) | payer MEDICARE, BC ==
[2019-03-20 17:24] LABS: BASOPHILS # (AUTO) 0.1 10^3/uL (0.0-0.1); EOSINOPHILS # (AUTO) 0.2 10^3/uL (0.0-0.7); HGB - HEMOGLOBIN 13.2 g/dL (14.0-18.0); LYMPHOCYTES # (AUTO) 1.3 10^3/uL (1.5-3.5); LYMPHOCYTES % (AUTO) 22.3 %; MEAN CORPUSCULAR HEMOGLOBIN 28.8 pg (27.0-31.0); MEAN CORPUSCULAR HGB CONC 31.3 g/dL (32.0-36.0); MEAN CORPUSCULAR VOLUME 91.9 fL (80.0-94.0); MEAN PLATELET VOLUME 11.1 fL (7.4-11.4); MONOCYTES # (AUTO) 0.7 10^3/uL (0.0-1.0); MONOCYTES % (AUTO) 12.1 %; NEUTROPHILS # (AUTO) 3.6 10^3/uL (1.5-6.6); NEUTROPHILS % (AUTO) 60.1 %; PLT - PLATELET COUNT 271 10^3/uL (130-450); RED BLOOD COUNT 4.59 10^6/uL (4.70-6.10); RED CELL DISTRIBUTION WIDTH 14.6 % (12.0-15.0)
[2019-03-20 17:33] LABS: ALBUMIN 4.3 g/dL (3.2-5.5); ALBUMIN/GLOBULIN RATIO 1.3 (1.0-2.2); BILIRUBIN,TOTAL 0.5 mg/dL (0.2-1.0); CALCIUM 9.4 mg/dL (8.5-10.3); CREATININE 1.4 mg/dL (0.6-1.2); TOTAL PROTEIN 7.5 g/dL (6.7-8.2)
== END 2019-03-20 13:07 | disposition home or self-care (01) ==
LOC: LAB.F 13:06
PROVIDERS: ATTEND Family Medicine
DX: R63.4 Abnormal weight loss (principal); R53.83 Other fatigue; N18.9 Chronic kidney disease, unspecified; C67.9 Malignant neoplasm of bladder, unspecified
CPT/HCPCS: 36415; 80053; 85025

== ENCOUNTER 2019-06-25 14:35 | Outpatient (CLI) | payer MEDICARE, BC ==
[2019-06-25 17:52] LABS: ALBUMIN 4.5 g/dL (3.2-5.5); ALBUMIN/GLOBULIN RATIO 1.7 (1.0-2.2); BILIRUBIN,TOTAL 0.6 mg/dL (0.2-1.0); CALCIUM 9.3 mg/dL (8.5-10.3); CREATININE 1.9 mg/dL (0.6-1.2); TOTAL PROTEIN 7.1 g/dL (6.7-8.2)
[2019-06-25 18:03] LABS: BASOPHILS # (AUTO) 0.1 10^3/uL (0.0-0.1); BASOPHILS % (AUTO) 1.2 %; EOSINOPHILS # (AUTO) 0.2 10^3/uL (0.0-0.7); HGB - HEMOGLOBIN 12.6 g/dL (14.0-18.0); LYMPHOCYTES # (AUTO) 1.6 10^3/uL (1.5-3.5); MEAN CORPUSCULAR HEMOGLOBIN 31.5 pg (27.0-31.0); MEAN CORPUSCULAR HGB CONC 33.7 g/dL (32.0-36.0); MEAN CORPUSCULAR VOLUME 93.5 fL (80.0-94.0); MEAN PLATELET VOLUME 11.6 fL (7.4-11.4); MONOCYTES # (AUTO) 0.6 10^3/uL (0.0-1.0); MONOCYTES % (AUTO) 10.1 %; NEUTROPHILS # (AUTO) 3.5 10^3/uL (1.5-6.6); NEUTROPHILS % (AUTO) 58.2 %; PLT - PLATELET COUNT 265 10^3/uL (130-450)
== END 2019-06-25 14:36 | disposition home or self-care (01) ==
LOC: LAB.S 14:35
PROVIDERS: ATTEND Family Medicine
DX: R53.83 Other fatigue (principal); N18.9 Chronic kidney disease, unspecified; C67.9 Malignant neoplasm of bladder, unspecified; R63.4 Abnormal weight loss
CPT/HCPCS: 36415; 80053; 82626; 82728; 85025

== ENCOUNTER 2019-07-16 08:18 | Outpatient (CLI) | payer MEDICARE, BC ==
--- NOTE | 2019-07-16 15:41 | Ultrasound Report ---
Reason: LOW GFR, HX BLADDER CA, S/P CYSTECTOMY WITH NEOBLA Procedure Date: 07/16/2019 Accession Number: [id number] / [id number] Procedure: US - Abdomen Complete CPT Code: FULL RESULT: EXAM: ABDOMEN ULTRASOUND EXAM DATE: 07/16/2019 09:17 AM. CLINICAL HISTORY: LOW GFR, HX BLADDER CA, S/P CYSTECTOMY WITH NEOBLA. COMPARISON: ABDOMEN/PELVIS W/O 11/13/2018 7:21 PM PELVIS W/WO 10/18/2018 2:18 PM. TECHNIQUE: Real-time scanning was performed with static images obtained. FINDINGS: Liver: Normal in size and increased in echotexture. 13 cm. Main portal vein flow: Hepatopetal. Gallbladder: No stones, wall thickening, or sonographic Johnson's sign. Biliary System: Common bile duct measures 3.3 mm. No intrahepatic or extrahepatic ductal dilatation. Pancreas: Imaged portion is unremarkable. Kidneys: Right: 10.7 cm longitudinally. Superior lateral 1.8 cm cyst. No contour-deforming mass, stones, or hydronephrosis. Left: 8 cm longitudinally. No contour-deforming mass, stones, or hydronephrosis. Spleen: 7.4 cm. Normal in size and echotexture. Aorta and Inferior Vena Cava: Unremarkable. Calcified aortic plaque noted. Free fluid: None. IMPRESSION: Coarse hepatic echotexture, consider fatty infiltration. No focal hepatic pathology. No hydronephrosis. Small right renal cyst. Small left kidney. RADIA
== END 2019-07-16 08:19 | disposition home or self-care (01) ==
LOC: DI 08:18
PROVIDERS: ATTEND Family Medicine
DX: N28.1 Cyst of kidney, acquired (principal); N27.0 Small kidney, unilateral; Z85.51 Personal history of malignant neoplasm of bladder; Z90.6 Acquired absence of other parts of urinary tract; Z93.6 Other artificial openings of urinary tract status
CPT/HCPCS: 76700